=== PATIENT | female | born 1980 | race Caucasian/White ===

== ENCOUNTER 2018-10-15 12:47 | Inpatient (IN) | payer OTHER ==
[2018-10-15] VITALS: BP 148/90
[~2018-10-15] VITALS: Ht 157.4 cm; Wt 63.0 kg
--- NOTE | ~2018-10-15 | EKG ---
[place], [place] ELECTROCARDIOGRAM REPORT NAME: BRIDGER EPPERSON UNIT #: [id number] ROOM: 402 DOCTOR: BETH DRAFT REPORT BIRTHDATE: [birth year] [facility] Test Date: 2018-10-15 Test Time: 13:49:06 Pat Name: BRIDGER EPPERSON Department: Room: 402 Gender: F Cyber Security Manager: Chandni Orozco : 1980 Requested By: MARILEE CORBETT Order Number: [id number] Reading MD: Clif Lomeli MD Measurements Intervals [place] Rate: 80 P: 62 SC: 140 QRS: 45 QRSD: 76 T: 31 QT: 369 QTc: 426 Interpretive Statements Sinus rhythm Baseline wander in lead(s) V4,V5 No previous ECG available for comparison Electronically Signed On 10-16-2018 14:54:43 PDT by Clif Lomeli MD CM:EKGRPT:ELECTROCARDIOGRAM REPORT [id number] MARILEE CAMPOS DRAFT REPORT MARILEE VILLALPANDO
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
[2018-10-15 12:47] VITALS: BP 129/86
[~2018-10-15 12:47] MED LIST: ATARAX,VISTARIL50 MG PO; CARBIDOPA/LEVOD1 TA1 PO; CIPROFLOXACIN500 M4 PO; NEURONTIN400 MG PO; ONDANSETRON HYDR4 M1 PO; PAXIL30 M2 PO; SUBOXONE 8 MG-1 EACH SL
[2018-10-15 13:52] LABS: BASO % 0.5 % (0.0-1.0); EOS # 0.2 10*3/uL (0.0-0.4); EOS % 2.6 % (1.0-4.0); HEMATOCRIT 40.7 % (37.0-47.0); HEMOGLOBIN 13.4 g/dl (12.0-16.0); LYMPH # 2.5 10*3/uL (1.3-4.4); LYMPH % 42.4 % (27.0-41.0); MEAN CELL VOLUME 93.8 fl (81.0-99.0); MEAN CORPUSCULAR HGB 30.9 pg (27.0-31.0); MEAN CORPUSCULAR HGB CONC 32.9 g/dl (33.0-37.0); MONO # 0.4 10*3/uL (0.1-1.0); MONO % 7.6 % (3.0-9.0); NEUT # 2.7 10*3/uL (2.3-7.9); NEUT % 46.7 % (47.0-73.0); PLATELET COUNT AUTOMATED 313 10*3/uL (130-400); RED BLOOD COUNT 4.34 10*6/uL (4.10-5.10); RED CELL DISTRI WIDTH 12.3 % (0-14.5); WHITE BLOOD COUNT 5.8 10*3/uL (4.8-10.8)
[2018-10-15 14:04] VITALS: BP 132/95
--- NOTE | 2018-10-15 14:15 | NUR ---
Patient sitting up in bed utilizing cellphone. No needs at this time. Will continue to monitor.
[2018-10-15 14:18] LABS: BILIRUBIN NEGATIVE (NEGATIVE); BLOOD 3+ (NEGATIVE); CLARITY CLEAR (CLEAR); COLOR YELLOW (YELLOW); GLUCOSE NEGATIVE (NEGATIVE); KETONE NEGATIVE (NEGATIVE); LEUKO ESTERASE NEGATIVE (NEGATIVE); NITRITE NEGATIVE (NEGATIVE); PH 5.5 (5.0-9.0); SPECIFIC GRAVITY 1.025 (1.005-1.030); UROBILINOGEN 0.2 E.U./dl (0.2-1.0)
[2018-10-15 14:30] LABS: BACTERIA 1+; URINE AMPHETAMINES < 1000 (1000ng/ml); URINE BARBITURATES < 200 (200ng/ml); URINE BENZODIAZEPINES < 200 (200ng/ml); URINE CANNABINOIDS (THC) < 50 (50ng/ml); URINE COCAINE < 300 (300ng/ml); URINE METHADONE > 300 (300ng/ml); URINE OPIATES < 300 (300ng/ml); WBC 0-2 wbc/hpf (0-5)
[2018-10-15 14:32] LABS: URINE PHENCYCLIDINE < 25 (25ng/ml)
[2018-10-15 14:35] LABS: ALBUMIN 3.7 gm/dl (3.1-4.5); ALKALINE PHOSPHATASE 75 U/L (45-117); BUN 11 mg/dl (7-24); CHLORIDE 106 mmol/L (98-107); CREATININE 0.74 mg/dL (0.55-1.02); LIPASE 153 U/L (73-393); POTASSIUM 3.9 mmol/L (3.5-5.1); SGOT/AST 20 IU/L (3-35); SGPT/ALT 21 U/L (12-78); SODIUM 139 mmol/L (136-145); TOTAL PROTEIN 7.5 gm/dL (6.4-8.2)
[2018-10-15 14:42] LABS: ACETAMINOPHEN (TYLENOL) < 5.0 ug/ml (10-30)
--- NOTE | 2018-10-15 15:23 | NUR ---
[place] STAFF ASSESSED PATIENT IN OFFICE AND PATIENT MEETS [facility]. PATIENT WANTS TO FOLLOW UP WITH [facility] FOR HER AFTERCARE PLAN. 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
--- NOTE | 2018-10-15 15:50 | NUR ---
38 year old FEMALE admitted to room # 402-1 for stabilization. Reports an addiction to ALCOHOL last used 5 hours prior to admission. Compliant with admission procedure. Patient COMPLAINING OF NAUSEA AND HEADACHE AT THIS TIME. SHE REPORTS DRINKING THIS MORNING PRIOR TO NOON. SEE ADMISSION ASSESSMENT.
[2018-10-15 16:00] VITALS: BP 132/100; BP 132/89
[2018-10-15] MEDS ORDERED: PREVACID30 M2 PO (16:02)
[2018-10-15] MEDS ORDERED: ZANTAC 150150 MG PO (16:03)
[2018-10-15] MEDS ORDERED: METHADONE HCL10 MG PO (16:27)
--- NOTE | 2018-10-15 16:53 | NUR ---
PRN MOTRIN GIVEN FOR COMPLAINTS OF A HEADACHE ALL OVER RATED A 5/10. WILL MONITOR FOR EFFECTIVENESS.
--- NOTE | 2018-10-15 17:50 | NUR ---
RE-EVALUATED AT THIS TIME. PT IS SLEEPING, NO SIGNS OF DISTRESS NOTED. MOTRIN EFFECTIVE. CONTINUE TO MONITOR THE PT.
--- NOTE | 2018-10-15 19:09 | NUR ---
PRN TYLENOL GIVEN FOR COMPLAINTS OF A HEADACHE ALL OVER RATED A 4/10. WILL MONITOR FOR EFFECTIVENESS.
[2018-10-15 20:00] VITALS: BP 138/94
--- NOTE | 2018-10-15 20:05 | NUR ---
RE-EVALUATED AT THIS TIME. PRN TYLENOL EFFECTIVE.
--- NOTE | 2018-10-15 23:00 | NUR ---
TOOK OVER CARE FOR THIS PATIENT AT THIS TIME. REPORT RECIEVED FROM LINDA FLYNN. PATIENT IS ASLEEP IN BED. RESPS ARE EASY AND NONLABORED. NO S/S OF WITHDRAWAL NOTED. CALL LIGHT WITHIN REACH. WILL CONTINUE TO MONITOR.
[2018-10-16] VITALS: BP 148/90
[2018-10-16 08:00] VITALS: BP 143/93
--- NOTE | 2018-10-16 10:18 | NUR ---
1MG OF ATIVAN RECIEVED PER PAVEL FROM Katie PISANO NP FOR PT C/O ANXIETY WILL CONTINUE TO MONITOR FOR EFFECTIVENESS.
[2018-10-16 12:00] VITALS: BP 128/88
--- NOTE | 2018-10-16 12:00 | NUR ---
IV ATIVAN EFFECTIVE PER PT
[2018-10-16 17:34] VITALS: BP 138/78
--- NOTE | 2018-10-16 19:39 | NUR ---
PT MEDICATED WITH PRN ZOFRAN AND ATIVAN FOR C/O SEVERE ANXIETY, SHAKING, AND NAUSEA. WILL MONITOR FOR EFFECTIVENESS.
[2018-10-16 20:00] VITALS: BP 145/99
--- NOTE | 2018-10-16 20:30 | NUR ---
PT IS RESTING COMFORTABLY. NO S/S OF DISTRESS NOTED. PRN MEDICATIONS EFFECTIVE.
[2018-10-17] VITALS: BP 145/91
[2018-10-17 08:00] VITALS: BP 146/98
--- NOTE | 2018-10-17 11:00 | NUR ---
ODILON PISANO NOTIFIED OF ELEVATED BP AND HEART RATE. PT DENIES CHEST PAIN OR SOB. DOES REPORT FEELING ANXIOUS
[2018-10-17 12:00] VITALS: BP 137/86
--- NOTE | 2018-10-17 12:11 | NUR ---
PT C/O OF HALLUCINATION, TREMORS AND ANIXETY. PRN ATIVAN GIVE PER ORDER. AT BEDSIDE
--- NOTE | 2018-10-17 19:12 | NUR ---
24 HR CHART CHECK COMPLETE.
[2018-10-17 20:00] VITALS: BP 127/86
--- NOTE | 2018-10-17 20:26 | NUR ---
PATIENT MEDICATED WITH PRN BENTYL AND TYLENOL FOR C/O STOMACH CRAMPING AND HEADACHE. WILL MONITOR FOR EFFECTIVENESS.
--- NOTE | 2018-10-17 21:00 | NUR ---
PT RESTING COMFORTABLY. PRN MEDICATIONS EFFECTIVE.
--- NOTE | 2018-10-17 21:36 | NUR ---
PT MEDICATED WITH PRN ZOFRAN FOR C/O NAUSEA. WILL CONTINUE TO MONITOR.
--- NOTE | 2018-10-17 22:57 | NUR ---
PT STATES THAT HER NAUSEA HAS RESOLVED. PRN ZOFRAN EFFECTIVE.
[2018-10-18] VITALS: BP 124/80
[2018-10-18 06:29] LABS: BASO % 0.4 % (0.0-1.0); EOS # 0.1 10*3/uL (0.0-0.4); EOS % 1.5 % (1.0-4.0); HEMATOCRIT 42.8 % (37.0-47.0); HEMOGLOBIN 13.7 g/dl (12.0-16.0); LYMPH # 3.2 10*3/uL (1.3-4.4); LYMPH % 42.9 % (27.0-41.0); MEAN CELL VOLUME 94.5 fl (81.0-99.0); MEAN CORPUSCULAR HGB 30.2 pg (27.0-31.0); MEAN PLATELET VOLUME 9.4 fl (9.6-12.3); MONO # 0.6 10*3/uL (0.1-1.0); MONO % 7.8 % (3.0-9.0); NEUT # 3.5 10*3/uL (2.3-7.9); NEUT % 47.3 % (47.0-73.0); PLATELET COUNT AUTOMATED 272 10*3/uL (130-400); RED BLOOD COUNT 4.53 10*6/uL (4.10-5.10); RED CELL DISTRI WIDTH 12.5 % (0-14.5); WHITE BLOOD COUNT 7.3 10*3/uL (4.8-10.8)
[2018-10-18 06:45] LABS: BUN 10 mg/dl (7-24); CHLORIDE 105 mmol/L (98-107); CREATININE 0.86 mg/dL (0.55-1.02); POTASSIUM 3.9 mmol/L (3.5-5.1); SODIUM 139 mmol/L (136-145)
--- NOTE | 2018-10-18 11:48 | NUR ---
[place] STAFF FOLLOWED UP WITH PATIENT AND REPORTED POSSIBLE DISCHARGE FOR TOMORROW. PATIENT IS STILL WANTING TO CONTINUE TO GO TO [facility] IN [place] FOR HER AFTERCARE PLAN. [place] STAFF ALSO REVIEWED [place] SERVICE PROTOCOL WITH PATIENT. PATIENT AGREES AND UNDERSTANDS. 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
[2018-10-18 12:00] VITALS: BP 136/97
--- NOTE | 2018-10-18 15:28 | NUR ---
pt denies any dellusions or hallucinations today, pt awake alert and orineted x2, pleasant and cooperative with care
[2018-10-18 16:00] VITALS: BP 132/93
--- NOTE | 2018-10-18 19:00 | NUR ---
PT RESTING QUIETLY IN BED AT THIS TIME. CONTINUES TO EXPERIENCE VISUAL AND AUDITORY HALLUCINATIONS. PT TEACHING PROVIDED ON ALCOHOL WITHDRAWAL S/S. CALL LIGHT IN REACH.
[2018-10-18 20:00] VITALS: BP 124/86
--- NOTE | 2018-10-18 20:50 | NUR ---
Patient displaying withdrawal symptoms, including: irritability, anxiousness, restlessness and agitation, complicated by impulsive behavior. Patient scores a 5 on the withdrawal scale. Scheduled/PRN medications provided. Will continue to monitor medication effectiveness.
[2018-10-19] VITALS: BP 120/81
--- NOTE | 2018-10-19 03:09 | NUR ---
24 HR chart check completed.
[2018-10-19 08:00] VITALS: BP 118/68
[2018-10-19] MEDS ORDERED: DICYCLOMINE HCL20 MG PO (08:23)
[2018-10-19] MEDS ORDERED: ESCITALOPRAM OX10 MG PO (08:23)
[2018-10-19] MEDS ORDERED: LOPERAMIDE HCL2 MG PO (08:23)
[2018-10-19] MEDS ORDERED: ATARAX,VISTARIL50 MG PO (08:23)
[2018-10-19] MEDS ORDERED: METOPROLOL SUCC25 M2 PO (08:23)
[2018-10-19] MEDS ORDERED: MOTRIN 600 MG E4 TAB PO (08:23)
--- NOTE | 2018-10-19 11:18 | NUR ---
Discharge instructions reviewed with patient/family. Patient receptive and verbalizes understanding. Follow-up care arranged. Written instructions given to patient/family. PATIENT AMBULATED FROM FLOOR. NO S/S OF DISTRESS. LEIGH CONNORS
--- NOTE | 2018-10-19 12:19 | NUR ---
VIEWED CHART TO REVIEW DISCHARGE MEDS FOR PHONE CALL.
== END 2018-10-19 11:18 | disposition home or self-care (01) | DRG 897 ==
LOC: ED 12:47 → EDHOLD 15:22 → 4E 15:22
PROVIDERS: Physician Assistant; ADMIT Internal Medicine
DX: F10.10 Alcohol abuse, uncomplicated (principal); E44.0 Moderate protein-calorie malnutrition; F17.210 Nicotine dependence, cigarettes, uncomplicated; R31.9 Hematuria, unspecified; F32.9 Major depressive disorder, single episode, unspecified; G89.29 Other chronic pain; R00.0 Tachycardia, unspecified; M54.2 Cervicalgia; I10 Essential (primary) hypertension; F41.1 Generalized anxiety disorder; Z88.0 Allergy status to penicillin; Z88.1 Allergy status to other antibiotic agents; Z82.49 Family history of ischemic heart disease and other diseases of the circulatory system; Z83.3 Family history of diabetes mellitus; Z79.899 Other long term (current) drug therapy; Z71.6 Tobacco abuse counseling; Z68.25 Body mass index [BMI] 25.0-25.9, adult